=== PATIENT | female | born 1970 | race Caucasian/White ===

== ENCOUNTER 2019-06-17 09:11 | Day surgery (SDC) | payer MEDICARE, OTHER ==
[~2019-06-17] VITALS: Ht 167.6 cm; Wt 86.0 kg
[2019-06-17] VITALS (17 sets, daily range): BP systolic 109–138; BP diastolic 60–77; PULSE 65–100; RESP 7–26; Ht 167.6 cm; Wt 86.0 kg
[~2019-06-17 09:11] MED LIST: CEFAZOLIN 2 GM/50 ML (PMX) 50 ML IVPB SCH; SOD CHLORIDE 0.9% 1,000 ML IV SCH
[2019-06-17] MEDS ORDERED: MIDAZOLAM 1 MG/ML 2 ML INJ ONE (10:12)
[2019-06-17] MEDS ORDERED: DESFLURANE 15 MIN ONE (10:12)
[2019-06-17] MEDS ORDERED: FENTAnyl 50 MCG/ML VIAL ONE ×2 (10:12→11:28)
[2019-06-17] MEDS ORDERED: PROPOFOL 20 ML ONE (10:14)
[2019-06-17] MEDS ORDERED: CEFAZOLIN 1 GM INJ ONE (10:14)
[2019-06-17] MEDS ORDERED: LIDOCAINE 2% (SDV) 5 ML INJ ONE (10:14)
[2019-06-17] MEDS ORDERED: ACETAMINOPHEN 500 MG TAB PO ONE (10:40)
[2019-06-17] MEDS ORDERED: DEXAMETHASONE 4 MG/ML 5 ML INJ ONE (10:55)
[2019-06-17] MEDS ORDERED: ONDANSETRON 4 MG INJ ONE (10:55)
[2019-06-17] MEDS ORDERED: HYDROmorphONE 1 MG/5 ML IV SYRINGE IV PRN (11:30)
[2019-06-17] MEDS ORDERED: MEPERIDINE 25 MG INJ IV PRN (11:30)
[2019-06-17] MEDS ORDERED: ONDANSETRON 4 MG INJ IV PRN (11:30)
[2019-06-17] MEDS ORDERED: traMADol 50 MG TAB PO PRN (11:30)
[2019-06-17] MEDS: HYDROmorphONE 1 MG/5 ML IV SYRINGE IV PRN ×5 (12:24→13:09)
== END 2019-06-17 14:38 | disposition home or self-care (01) ==
LOC: SDS 09:11
PROVIDERS: ATTEND Surgery Surgical Oncology
DX: M72.8 Other fibroblastic disorders (principal); D48.1 Neoplasm of uncertain behavior of connective and other soft tissue
CPT/HCPCS: 23073; 71045; 80053; 85025; 85610; 85730; 88307; 93005; J0690; J1100; J1170; J2175; J2250; J2405; J3010